=== PATIENT | male | born 1950 | race Caucasian/White ===

== ENCOUNTER 2019-12-26 15:04 | Outpatient (CLI) | payer MEDICARE, OTHER ==
--- NOTE | 2019-12-26 15:51 | ULT ---
Venous duplex sonogram left lower extremity HISTORY: Left leg pain and edema. FINDINGS: The left common femoral vein and greater saphenous junction were evaluated along with the f emoral, deep femoral, popliteal, and posterior tibial veins. There is good color and spectral Doppler flow, compression, and augmentation. Sonographic evaluation of the area of palpable abnormality at the anterior aspect of the lower leg sh ows nonspecific heterogeneous soft tissue thickening superficial to the tibia. No aggressive destruction or well-defined mass evident. IMPRESSION : No sonographic evidence of DVT within the left lower extremity. Nonspecific soft tissue thickening in the area of palpable concern.
== END 2019-12-26 15:05 | disposition home or self-care (01) ==
LOC: SCSULT 15:04
PROVIDERS: ATTEND Emergency Medicine
DX: M79.662 Pain in left lower leg (principal); M79.89 Other specified soft tissue disorders